=== PATIENT | male | born 1950 | race Caucasian/White ===

== ENCOUNTER 2021-08-11 10:46 | Emergency (ER) | payer OTHER, MEDICARE, BC ==
[2021-08-11] MEDS ORDERED: Lidocaine 1% (PF) 30 ML VIAL ONE (12:08)
[2021-08-11] MEDS ORDERED: Bacitracin 1 PK ONE (12:09)
== END 2021-08-11 12:45 | disposition home or self-care (01) ==
LOC: NAV ERS 10:46
DX: S61.211A Laceration without foreign body of left index finger without damage to nail, initial encounter (principal); I10 Essential (primary) hypertension; E78.5 Hyperlipidemia, unspecified; E78.00 Pure hypercholesterolemia, unspecified; W26.0XXA Contact with knife, initial encounter; Z79.82 Long term (current) use of aspirin; Z79.899 Other long term (current) drug therapy
CPT/HCPCS: 12002; J2001